=== PATIENT | female | born 1960 | race Two or more races ===

== ENCOUNTER 2020-08-10 09:29 | Outpatient (CLI) | payer OTHER | END 2020-08-10 18:00 | disposition home or self-care (01) | LOC: LAB 09:29 | PROVIDERS: ATTEND Radiology Diagnostic Radiology | DX: N20.0 Calculus of kidney (principal) ==

== ENCOUNTER 2020-08-11 08:06 | Outpatient (CLI) | payer OTHER | END 2020-08-11 08:30 | disposition home or self-care (01) | LOC: LAB 08:06 | PROVIDERS: ATTEND Obstetrics & Gynecology | DX: I10 Essential (primary) hypertension (principal); N95.1 Menopausal and female climacteric states; E66.3 Overweight; E55.9 Vitamin D deficiency, unspecified; R10.2 Pelvic and perineal pain ==

== ENCOUNTER 2020-08-13 07:19 | Outpatient (CLI) | payer OTHER | END 2020-08-13 07:37 | disposition home or self-care (01) | LOC: RAD 07:19 | PROVIDERS: ATTEND Obstetrics & Gynecology | DX: N85.8 Other specified noninflammatory disorders of uterus (principal); Z12.31 Encounter for screening mammogram for malignant neoplasm of breast; N60.11 Diffuse cystic mastopathy of right breast; N60.12 Diffuse cystic mastopathy of left breast; N64.59 Other signs and symptoms in breast | CPT/HCPCS: 72197; 74183; 76641; 77067; A9575 ==

== ENCOUNTER 2021-01-28 08:00 | Inpatient (IN) | payer OTHER ==
[~2021-01-28] VITALS: Ht 152.4 cm; Wt 65.8 kg
[2021-01-28] MEDS ORDERED: ADULT LOW DOSE81 M1 PO (11:44)
[2021-01-28] MEDS ORDERED: TOPROL XL25 M1 PO (11:44)
[2021-01-28] MEDS ORDERED: MENEST0.3 MG PO (11:44)
[2021-01-28] MEDS ORDERED: LIPITOR20 MG PO (11:45)
[2021-01-28] MEDS ORDERED: VERELAN240 MG PO (11:45)
[2021-01-28] MEDS ORDERED: ACID REDUCER20 M1 PO (11:45)
[2021-01-28] MEDS ORDERED: ZYRTEC10 M3 PO (11:46)
== END 2021-02-05 14:25 | disposition home or self-care (01) | DRG 743 ==
LOC: O/R 02-03 05:42 → OB/GYN 02-03 05:42 → SURH 02-03 07:00 → OB/GYN 02-03 14:27
PROVIDERS: ADMIT Obstetrics & Gynecology Gynecologic Oncology; ATTEND Obstetrics & Gynecology Gynecologic Oncology
PROC: 0UTC0ZZ Resection of Cervix, Open Approach (ICD-10-PCS; 2021-02-03)
PROC: 0UT70ZZ Resection of Bilateral Fallopian Tubes, Open Approach (ICD-10-PCS; 2021-02-03)
PROC: 07BC0ZZ Excision of Pelvis Lymphatic, Open Approach (ICD-10-PCS; 2021-02-03)
PROC: 0TN70ZZ Release Left Ureter, Open Approach (ICD-10-PCS; 2021-02-03)
PROC: 0TN60ZZ Release Right Ureter, Open Approach (ICD-10-PCS; 2021-02-03)
PROC: 0UT20ZZ Resection of Bilateral Ovaries, Open Approach (ICD-10-PCS; principal; 2021-02-03 07:00)
DX: D27.0 Benign neoplasm of right ovary (principal); D26.0 Other benign neoplasm of cervix uteri; N88.8 Other specified noninflammatory disorders of cervix uteri; Z90.711 Acquired absence of uterus with remaining cervical stump

== ENCOUNTER 2022-02-16 12:03 | Outpatient (CLI) | payer OTHER ==
[~2022-02-16 12:03] MED LIST: ACID REDUCER20 M1 PO; ADULT LOW DOSE81 M1 PO; LIPITOR20 MG PO; MENEST0.3 MG PO; TOPROL XL25 M1 PO; VERELAN240 MG PO; ZYRTEC10 M3 PO
== END 2022-02-16 12:06 | disposition home or self-care (01) ==
LOC: MAMO-SONO 12:03
PROVIDERS: ATTEND Obstetrics & Gynecology
DX: N60.11 Diffuse cystic mastopathy of right breast (principal); N60.12 Diffuse cystic mastopathy of left breast; Z12.31 Encounter for screening mammogram for malignant neoplasm of breast